=== PATIENT | female | born 1975 | race Caucasian/White ===

== ENCOUNTER 2019-08-09 06:27 | Emergency (ER) | payer OTHER ==
--- NOTE | 2019-08-09 06:35 | PDOC ---
History of Present Illness - General Chief Complaint: Pain, Acute Stated Complaint: CHEST PAIN, BACK PAIN SOB ON AND OFF 2 MONTHS Time Seen by Provider: 08/09/19 06:33 - History of Present Illness Initial Comments: 08/09/19 06:40 This 44-year-old woman with a history of SVT (ablation x2 approximately 12 years ago), anxiety, cervical disc disease, right-sided sciatica PCOS, endometriosis presents with few month history of intermittent chest pain and shortness of breath. Patient describes pain as occurring in the left side of her neck extending to left upper parasternal area. This area is also tender to palpation. No history of trauma to the chest wall. She has subjective shortness of breath and nonproductive cough. No fever noted. She has had intermittent nausea and vomiting (no blood or coffee-ground emesis). Nausea can occur at any time and not associated with meals. She has had bilateral lower extremity pain in the last few weeks ("heaviness") without edema or palpable masses. No recent surgery or immobility. No previous history of thromboembolic phenomena Patient admits not being fully compliant with her medications in recent weeks stating that because of her symptoms, she sometimes forgets to take her medication. Past History - Past Medical History Allergies/Adverse Reactions: Allergies Allergy/AdvReac Type Severity Reaction Status Date / Time gabapentin Allergy Severe [place] like Verified 08/09/19 06:31 her tongue was stock against palate and could not bupropion HCl AdvReac Severe confussion, Verified 08/09/19 06:31 [From Wellbutrin] agitation, vomiting, and severe LARKIN citalopram hydrobromide AdvReac Intermediate agitated Verified 08/09/19 06:31 [From Celexa] and angry Home Medications: Ambulatory Orders Clonazepam [Klonopin] 1 mg PO BID 08/09/19 Dextroamphetamine/Amphetamine [Adderall 10 mg Tablet] 30 mg PO BID 08/09/19 Metoprolol Succinate [Toprol Xl] 50 mg PO HS 08/09/19 Metoprolol Succinate [Toprol Xl] 100 mg PO AM 08/09/19 Topiramate [Topamax] 50 mg PO TID 08/09/19 Cardiac Disorders: Yes (, IRREGULAR HEART RATE) Disorders: Yes (PCOD) - Surgical History Cardiac Surgery: Yes (CARDIAC ABLATION X2) - Psycho Social/Smoking Cessation Hx Smoking Status: Yes Smoking History: Current every day smoker Years of Tobacco Use: 18 Number of Cigarettes Smoked Daily: 10 Drug/Substance Use Hx: No Substance Use Type: None Review of Systems - Review of Systems Able to Perform ROS?: Yes Comments:: 12 point review of systems is negative except for what is noted in the history of present illness *Physical Exam - Physical Exam Comments: GENERAL: Adult female, markedly anxious, alert and oriented x3 HEAD: Normal with no signs of trauma. EYES: PERRLA, EOMI, sclera anicteric, conjunctiva clear. ENT: Ears normal, nares patent, oropharynx clear without exudates. Dry mucous membranes. NECK: Normal range of motion, supple without lymphadenopathy, JVD, or masses. CHEST WALL: Mild tenderness to palpation left upper sternal border; no step- offs or crepitus LUNGS: Breath sounds equal, clear to auscultation bilaterally. No wheezes, and no crackles. HEART:Regular rate and rhythm, normal S1 and S2 without murmur, rub or gallop. ABDOMEN:.normal bowel sounds No guarding,tenderness or rebound.No masses No distention. EXTREMITIES: Normal range of motion, No clubbing or cyanosis. No erythema No tenderness or pitting edema NEUROLOGICAL: Cranial nerves II through XII grossly intact. Normal speech. No focal neurologic deficit. MUSCULOSKELETAL: Back non-tender to palpation, no CVA tenderness SKIN: Warm, Dry, normal turgor, no rashes or lesions noted. Medical Decision Making - Medical Decision Making 08/09/19 07:14 CBC, chemistry profile, cardiac enzymes, d-dimer sent Twelve-lead electrocardiogram will be performed. Etiology of chest pain may be related to her cervical disc pathology; she has no significant risk factors for coronary artery disease or acute thromboembolic process but cardiac enzymes and d-dimer sent. Factor of anxiety more likely a component in this patient's pain. Case signed out to Dr. Garcia at end of shift Discharge - Discharge Information Condition: Stable - Follow up/Referral Referrals: Rosas Swanson MD [Primary Care Provider] - - Patient Discharge Instructions - Post Discharge Activity
[2019-08-09 06:49] VITALS: TEMP 98.1; BMI 46.0
[2019-08-09] MEDS ORDERED: clonazePAM 0.5 MG TABLET PO ONE ×2 (07:24→09:13)
[2019-08-09] MEDS ORDERED: clonazePAM 0.5 MG TABLET ONE (07:31)
[2019-08-09 08:29] LABS: BASO % 0.8 % (0-2.0); EOS % 0.5 % (0-4.5); HEMATOCRIT 48.8 % (32.4-45.2); HEMOGLOBIN 16.6 GM/dL (10.7-15.3); LYMPH % 19.8 % (8-40); MCH 29.3 pg (25.7-33.7); MCHC 34.1 g/dl (32.0-36.0); MEAN CELL VOLUME 86.1 fl (80-96); MEAN PLT VOLUME 8.1 fl (7.5-11.1); MONO % 6.2 % (3.8-10.2); NEUT % 72.7 % (42.8-82.8); PLATELET COUNT 447 K/MM3 (134-434); RBC 5.67 M/mm3 (3.60-5.2); RDW 14.7 % (11.6-15.6); WHITE BLOOD COUNT 14.1 K/mm3 (4.0-10.0)
[2019-08-09 08:30] LABS: ALBUMIN 4.4 g/dl (3.4-5.0); ALK PHOS 109 U/L (45-117); ANION GAP 10 MMOL/L (8-16); BILIRUBIN,TOTAL 0.8 mg/dL (0.2-1); BLOOD UREA NITROGEN 13.2 mg/dL (7-18); CALCIUM 9.9 mg/dL (8.5-10.1); CHLORIDE 103 mmol/L (98-107); CO2 22 mmol/L (21-32); CREATININE 0.9 mg/dL (0.55-1.3); GLUCOSE,RANDOM 116 mg/dL (74-106); POTASSIUM 4.1 mmol/L (3.5-5.1); SGOT/AST 27 U/L (15-37); SGPT/ALT 43 U/L (13-61); SODIUM 135 mmol/L (136-145); TOT PROT 8.4 g/dl (6.4-8.2)
--- NOTE | 2019-08-09 09:03 | PDOC ---
*Physical Exam - Vital Signs Last Vital Signs Temp Pulse Resp BP Pulse Ox 98.1 F 109 H 22 H 142/87 98 08/09/19 06:43 08/09/19 06:43 08/09/19 06:43 08/09/19 06:43 08/09/19 06:43 ED Treatment Course - LABORATORY CBC & Chemistry Diagram: 08/09/19 06:58 08/09/19 06:58 Comment: EKG is normal. Labs without significant abnormalities. - ADDITIONAL ORDERS Additional order review: Laboratory Results 08/09/19 08/09/19 06:58 06:58 D-Dimer 391 Sodium 135 L Potassium 4.1 Chloride 103 Carbon Dioxide 22 Anion Gap 10 BUN 13.2 Creatinine 0.9 Est GFR (CKD-EPI)AfAm 89.50 Est GFR (CKD-EPI)NonAf 77.22 Random Glucose 116 H Calcium 9.9 Total Bilirubin 0.8 AST 27 ALT 43 Alkaline Phosphatase 109 Creatine Kinase 65 Troponin I < 0.02 Total Protein 8.4 H Albumin 4.4 08/09/19 06:58 RBC 5.67 H MCV 86.1 MCHC 34.1 RDW 14.7 MPV 8.1 Neutrophils % 72.7 D Lymphocytes % 19.8 D Monocytes % 6.2 Eosinophils % 0.5 D Basophils % 0.8 - Medications Given in the ED: ED Medications Discontinued Medications Generic Name Dose Route Start Last Admin Trade Name Freq PRN Reason Stop Dose Admin Clonazepam 0.5 mg 08/09/19 07:24 08/09/19 07:32 Klonopin - PO 08/09/19 07:25 0.5 mg ONCE ONE Administration Medical Decision Making - Medical Decision Making 08/09/19 09:15 EKG: Normal sinus rhythm 81/min normal axes and intervals. No ST-T wave changes. Normal EKG Cardiac enzymes and d-dimer are negative. The remainder of the labs show no significant abnormalities. Patient is improved after administration of Klonopin and Toradol. Her symptoms seem to be related to cervical arthritis/radiculopathy. Aggravated by anxiety. Has appointment with painting instructor, and close relationship with primary physician Dr. Swanson. She will follow-up as directed. Also referred to Dr. Araujo, acute care clinical nurse specialist. Adequately ambulatory and in no serious pain or other distress at discharge with father to follow-up as directed Discharge - Discharge Information Problems reviewed: Yes Clinical Impression/Diagnosis: Cervical radiculopathy, Anxiety Condition: Improved Disposition: HOME - Admission No - Additional Discharge Information Prescriptions: Acetaminophen W/ Codeine #3 [Tylenol # 3] 2 combo PO Q6H PRN #14 tablet MDD 6 PRN Reason: Severe Pain - Follow up/Referral Referrals: Rosas Swanson MD [Primary Care Provider] - Du Araujo MD [Staff Physician] - - Patient Discharge Instructions Patient Printed Discharge Instructions: DI for Anxiety -- Adult, DI for Cervical Radiculopathy Additional Instructions: Follow-up with pain management as scheduled. Consider consult with acute care clinical nurse specialist and physical therapy. Discussed other options with primary physician Dr. Swanson. - Post Discharge Activity
[2019-08-09] MEDS ORDERED: KETOROLAC TROMETHAMINE 30 MG/1 ML VIAL IVPUSH ONE (09:12)
[2019-08-09] MEDS ORDERED: KETOROLAC TROMETHAMINE 30 MG/1 ML VIAL ONE (09:13)
[2019-08-09 09:42] VITALS: BP 152/85; PULSE 93
--- NOTE | 2019-08-09 13:43 | EKG ---
Test Reason : Blood Pressure : / mmHG Vent. Rate : 081 BPM Atrial Rate : 081 BPM P-R Int : 162 ms QRS Dur : 092 ms QT Int : 386 ms P-R-T Axes : 000 023 029 degrees QTc Int : 448 ms NORMAL SINUS RHYTHM WITH SINUS ARRHYTHMIA NORMAL ECG NO PREVIOUS ECGS AVAILABLE Confirmed by MD Robbin, Zay ([id number]) on 08/09/2019 1:43:10 PM Referred By: JUANITA DE LA TORRE Confirmed By:Zay Siegel MD
== END 2019-08-09 09:43 | disposition home or self-care (01) ==
LOC: FER 06:27
PROC: 3E0333Z Introduction of Anti-inflammatory into Peripheral Vein, Percutaneous Approach (ICD-10-PCS; principal; 2019-08-09)
DX: M54.12 Radiculopathy, cervical region (principal); F41.9 Anxiety disorder, unspecified; M50.90 Cervical disc disorder, unspecified, unspecified cervical region; E28.2 Polycystic ovarian syndrome; M54.31 Sciatica, right side; F17.210 Nicotine dependence, cigarettes, uncomplicated; Z88.8 Allergy status to other drugs, medicaments and biological substances
CPT/HCPCS: 36415; 80053; 82550; 84484; 85025; 85379; 93005; 99282-25

== ENCOUNTER 2019-11-19 10:42 | Emergency (ER) | payer OTHER ==
[2019-11-19 10:54] VITALS: TEMP 97.8; BMI 44.8
--- NOTE | 2019-11-19 11:05 | PDOC ---
Attending Attestation - Resident Resident Name: DouglasSilver - ED Attending Attestation I have performed the following: I have examined & evaluated the patient, The case was reviewed & discussed with the resident, I agree w/resident's findings & plan, Exceptions are as noted - HPI HPI: 11/19/19 12:18 Long history of fibromyalgia and chronic neck and back pain. Refractory to most medications. Difficulty obtaining appointments with medical aides teacher because of limited insurance coverage. However, has consulted pain management, physical therapist. Fell in her bathtub approximately 1 to 2 weeks ago, injuring her left shoulder and arm. Persistent pain in these areas, x-rays ordered by outside physician and performed today at [facility] were negative. Maintained on Klonopin, ibuprofen, Topamax, tramadol. Uses marijuana for relaxation and pain relief. Also on metoprolol for high blood pressure, Adderall for ADD 11/19/19 12:25 - Physicial Exam PE: 11/19/19 12:21 Examination reveals an elevated blood pressure but otherwise vital signs normal Head atraumatic. PERRLA, fundi benign, ENT clear Neck without point tenderness or deformity, good range of motion with no severe pain. No inflammatory changes Neurological C2 to 12 intact. Strength full and symmetric. No focal sensorimotor deficits. Gait stable and unimpaired. Lungs clear. No chest wall or rib cage tenderness or deformity CV regular without murmur rub or gallop Abdomen benign Extremities no visible or palpable sign of trauma, no limited range of motion including shoulders hips and knees. - Medical Decision Making 11/19/19 12:22 Assessment: Chronic neck and low back pain, exacerbated by recent fall, no sign of severe injury. High blood pressure not adequately controlled Plan: Symptomatic treatment of acute superimposed on chronic neck and back pain. Suggested weight loss, increase exercise, heat to the neck and low back, lidocaine patches, continue anti-inflammatory medication, and Klonopin. With pain relief, hopefully blood pressure will be under better control. Recommended to follow-up with primary physician Dr. Swanson in 2 to 3 days for repeat of blood pressure and assessment of whether additional blood pressure medication is needed. Sling applied to the left arm for comfort. Pain is improved with immobilization of the arm, Toradol, and lidocaine patch. Continue lidocaine. Fully ambulatory and in no severe pain or other distress at discharge. 11/19/19 15:00
--- NOTE | 2019-11-19 11:38 | PDOC ---
History of Present Illness - General Chief Complaint: Pain Stated Complaint: BACK, NECK PAIN Time Seen by Provider: 11/19/19 10:56 History Source: Patient Exam Limitations: No Limitations - History of Present Illness Initial Comments: 44F PMH cervical ridiculopathy, fibromyalgia, anxiety, HTN presenting with neck , arm, and low back pain. Neck pain has been on-going for 2 weeks with radiation down the left arm; was assessed by Urgent Care and sent in for XRs of the LUE today. Patient also has 6 months of low back pain with radiation down the back of the legs. Past History - Past Medical History Allergies/Adverse Reactions: Allergies Allergy/AdvReac Type Severity Reaction Status Date / Time gabapentin Allergy Severe [place] like Verified 11/19/19 10:44 her tongue was stock against palate and could not bupropion HCl AdvReac Severe confussion, Verified 11/19/19 10:44 [From Wellbutrin] agitation, vomiting, and severe LARKIN citalopram hydrobromide AdvReac Intermediate agitated Verified 11/19/19 10:44 [From Celexa] and angry Home Medications: Ambulatory Orders Clonazepam [Klonopin] 1 mg PO BID 08/09/19 Dextroamphetamine/Amphetamine [Adderall 10 mg Tablet] 30 mg PO BID 08/09/19 Metoprolol Succinate [Toprol Xl] 50 mg PO HS 08/09/19 Metoprolol Succinate [Toprol Xl] 100 mg PO AM 08/09/19 Topiramate [Topamax] 50 mg PO TID 08/09/19 Lidocaine 5% Patch [Lidoderm -] 1 patch TP DAILY #30 patch 11/19/19 Cardiac Disorders: Yes (, IRREGULAR HEART RATE) COPD: No Disorders: Yes (PCOS) HTN: Yes Other medical history: FIBROMYALGIA, HERNIATED DISC - Surgical History Cardiac Surgery: Yes (CARDIAC ABLATION X2) - Psycho Social/Smoking Cessation Hx Smoking Status: Yes Smoking History: Current every day smoker Years of Tobacco Use: 18 Have you smoked in the past 12 months: Yes Number of Cigarettes Smoked Daily: 10 Information on smoking cessation initiated: Yes 'Breaking Loose' booklet given: 08/09/19 Hx Alcohol Use: No Drug/Substance Use Hx: No Substance Use Type: None Review of Systems - Review of Systems Comments:: CONSTITUTIONAL: Denies F / C HEENT: Denies headache RESP: Denies SOB CARD: Denies chest pain GI: Denies abdominal pain : Denies dysuria, retention SKIN: Denies rashes NEURO: Denies numbness, tingling, weakness MSK: Denies back pain *Physical Exam - Vital Signs Last Vital Signs Temp Pulse Resp BP Pulse Ox 97.8 F 104 H 20 162/105 H 98 11/19/19 10:42 11/19/19 10:42 11/19/19 10:42 11/19/19 10:42 11/19/19 10:42 - Physical Exam GEN: Anxious, somewhat disheveled, AAOx3. HEENT: NC/AT. No facial asymmetry. Normal voice. Supple neck w/ FROM. CV: S1/S2, RRR, no m/r/g LUNG: CTAB, no wheezes, crackles, rales, rhonchi GI: Soft, ndnt, +BS MSK: No obvious deformities of all extremities. SKIN: Warm, dry, no rashes appreciated. PSYCH: Odd affect, anxious, mildly disorganized NEURO: Moving all extremities well. 5/5 UE LE strength. FROM. Ambulates w/ normal gait. SLR neg b/l. Medical Decision Making - Medical Decision Making 11/19/19 11:31 44F with sub-acute on chronic neck and back pain. Neurologically intact. Unlikely acute pathology - Left shoulder, humerus, and elbow XR report reviewed w/o acute pathology - Toradol. Lidocaine patch - DC home w/ PCP f/u Discharge - Discharge Information Problems reviewed: Yes Clinical Impression/Diagnosis: Cervical radiculopathy Condition: Stable Disposition: HOME - Admission No - Additional Discharge Information Prescriptions: Lidocaine 5% Patch [Lidoderm -] 1 patch TP DAILY #30 patch - Follow up/Referral Referrals: Rosas Swanson MD [Primary Care Provider] - - Patient Discharge Instructions Patient Printed Discharge Instructions: DI for Low Back Pain, DI for Cervical Radiculopathy Additional Instructions: We sent a prescription to your pharmacy, please pick it up and take as prescribed. Your blood pressure was elevated on exam. Follow up with Dr. Swanson in the next 7 days to have your blood pressure rechecked and for further care of your conditions. Continue your home medications as prescribed. We recommend weight loss, healthy diet, and increased activity to help with your symptoms. - Post Discharge Activity
[2019-11-19] MEDS ORDERED: KETOROLAC TROMETHAMINE 30 MG/1 ML VIAL IM ONE (12:12)
[2019-11-19] MEDS ORDERED: LIDOCAINE 5% TOPICAL PATCH TP ONE (12:13)
[2019-11-19] MEDS ORDERED: KETOROLAC TROMETHAMINE 30 MG/1 ML VIAL ONE (12:21)
[2019-11-19] MEDS ORDERED: LIDOCAINE 5% TOPICAL PATCH ONE (12:21)
[2019-11-19 12:29] VITALS: BP 158/84; PULSE 98
[2019-11-19] MEDS ORDERED: LIDOCAINE PATCH REMOVAL MC SCH (22:00)
== END 2019-11-19 12:40 | disposition home or self-care (01) ==
LOC: FER 10:42
PROC: 3E0233Z Introduction of Anti-inflammatory into Muscle, Percutaneous Approach (ICD-10-PCS; principal; 2019-11-19)
DX: M54.12 Radiculopathy, cervical region (principal); I10 Essential (primary) hypertension; I49.9 Cardiac arrhythmia, unspecified; M79.7 Fibromyalgia; F17.210 Nicotine dependence, cigarettes, uncomplicated
CPT/HCPCS: 96372; 99284-25